=== PATIENT | male | born 1990 | race Caucasian/White ===

== ENCOUNTER 2023-06-18 17:37 | Emergency (ER) | payer SELFPAY ==
[~2023-06-18] VITALS: Ht 190.5 cm; Wt 59.0 kg
[2023-06-18 18:00] VITALS: BP 136/60; PULSE 88; RESP 16; TEMP 97.8; O2SAT 97
== END 2023-06-18 20:33 | disposition left against medical advice (07) ==
LOC: ER 17:37
DX: Z53.21 Procedure and treatment not carried out due to patient leaving prior to being seen by health care provider (principal)
CPT/HCPCS: 99281